=== PATIENT | female | born 1945 | race Caucasian/White ===

== ENCOUNTER → 2020-01-13 07:50 | Outpatient (CLI) | payer MEDICARE, SELFPAY ==
--- NOTE | 2020-01-13 08:00 | CT_ITS ---
STUDY: CT CHEST WITH CONTRAST REASON FOR EXAM: Female, 74 years old. Metastatic breast cancer staging. RADIATION DOSAGE (If Supplied By Facility): CTDIvol = ( 10.79 ) mGy, DLP = ( 849.00 ) mGycm TECHNIQUE: Transaxial imaging was performed following intravenous administration of Oral and amp; IV Readi-CAT and amp; 100ML OPTIRAY 32. Multiplanar coronal and sagittal images were reformatted. Individualized dose optimization techniques were used for this CT. COMPARISON: None. FINDINGS: A left-sided portacatheter is seen. The tip is in the superior vena cava. Bilateral breast prostheses. Surgical clips are seen in the left axillary region. Small benign-appearing bilateral axillary lymph nodes. There are multiple pleural based masses in the left hemithorax. A dominant 2.2 cm mass is seen in the anterior lateral aspect of the left upper lobe. This is pleural-based. Several other nodular masses are seen along the posterior aspect of the left lower lobe as well as in the lateral anterior aspect of the right middle lobe which is pleural-based. This measures 3.5 cm x 1.5 cm. There is also evidence of small nodular densities seen along the pleural surface along the medial aspect of the right upper lobe extending into the mediastinum at the level of the aortic arch. Normal heart and pericardium. Normal mediastinum. Normal hilar regions. Normal enhanced pulmonary arteries. Normal aorta arch and descending thoracic aorta. There is evidence of bony destruction of the midportion of the body of the sternum with expansion. Small scattered sclerotic foci are seen in the mid dorsal vertebrae. There is a 5.9 cm x 5.3 cm low density mass in the spleen with a calcific rim surrounding it. This may represent changes secondary to old trauma. CT/Chest WITH Contrast IMPRESSION: Multiple pleural-based masses seen in the left hemithorax as described. Bony destruction of the body of the sternum. Electronically Signed: Angel Morse, at 11:09 EDT , Service support ,
--- NOTE | 2020-01-13 08:00 | CT_ITS ---
STUDY: CT ABDOMEN AND PELVIS WITH CONTRAST REASON FOR EXAM: Female, 74 years old. Metastatic breast cancer staging. RADIATION DOSAGE (If Supplied By Facility): CTDIvol = ( 10.79 ) mGy, DLP = ( 849.00 ) mGycm TECHNIQUE: Transaxial images were obtained from the dome of the diaphragm to the symphysis pubis with oral contrast. Oral and amp; IV Readi-CAT and amp; 100ML OPTIRAY 32 was administered. Sagittal and coronal images were reconstructed. Individualized dose optimization techniques were used for this CT. COMPARISON: None. FINDINGS: Bilateral breast implants. There is a 4.9 cm x 1.9 cm pleural based mass in the left lower lobe. Further abnormalities were described on the prior CT scan of the thorax. The visualized portions of the heart are within normal limits. 4.5 mm cyst in the medial aspect of the right lobe of the liver along its dome. A similar appearing hypodensity is seen in the inferior aspect of the right lobe of the liver. This measures 7.8 m x 10 mm. Normal gallbladder and extrahepatic biliary system. There is a 5.5 cm x 5.9 cm cystic lesion in the body and midportion of the spleen with a thick calcific rim. This most likely recurrence changes secondary to old trauma. Normal pancreas. Normal bilateral adrenal glands. Normal right kidney. Normal left kidney. Normal visualized stomach. Normal small intestine. Normal colon. The appendix is visualized and appears normal. Normal abdominal aorta. Normal inferior vena cava. Normal retroperitoneum. Normal urinary bladder. Normal abdominal wall. Disc space narrowing and degeneration with spondylosis and subchondral sclerosis at the L5-S1 level. Mild levoscoliosis. The patient is status post bilateral total hip replacement causing streak artifacts in the pelvis and limiting the evaluation of the pelvic structures. CT/Abdomen/Pelvis WITH Contrast IMPRESSION: Tiny cysts in the liver. Hypodense mass with a thick calcific rim in the spleen suggestive of old trauma. Pleural-based mass in the left lower lobe. Electronically Signed: Angel Morse at 11:13 EDT , Service support ,
--- NOTE | 2020-01-13 09:48 | ECHOD_ITS ---
Reason For Study: PALPITATIONS, Procedure This was a 2D Doppler, Color Flow transthoracic echocardiogram. Exam performed in department. Left Ventricle Normal LV size. The estimated ejection fraction is 60-65 %. Normal diastology for age. No regional wall motion abnormalities noted. Right Ventricle Normal RV size. Normal systolic function. Atria Normal left atrium. The right atrium is mildly enlarged. No doppler evidence for ASD. Mitral Valve There is no mitral valve stenosis. No mitral valve insufficiency. Tricuspid Valve There is no tricuspid stenosis. Trivial tricuspid valve insufficiency. Pulmonary artery systolic pressure is 25 mmHg. Aortic Valve Trisinus/trileaflet aortic valve. There is no aortic stenosis. No aortic valve insufficiency. Pulmonic Valve There is no pulmonic valvular stenosis. No pulmonic valve insufficiency. Great Vessels Normal aortic root. Pericardium/Pleural No pericardial effusion. MMode/2D Measurements & Calculations LVIDd: 4.3 cm IVSd: 0.78 cm Ao root diam: 3.1 cm LVIDs: 2.8 cm LVPWd: 0.77 cm RVDd: 3.3 cm FS: 35.1 % LAV(MOD-bp): 35.6 ml LA A4 area: 14.2 cm2 LA dimension(2D): 2.4 cm LAV(MOD-sp2): 39.8 ml LAV(MOD-sp4): 30.2 ml RA A4 area: 20.6 cm2 Time Measurements MV dec time: 0.19 sec Doppler Measurements & Calculations MV E max eulogio: 69.9 cm/sec Lat Peak E' Eulogio: 8.8 cm/sec Med Peak E' Eulogio: 6.8 cm/sec MV A max eulogio: 82.9 cm/sec E/E' lat: 7.9 E/E' med: 10.2 MV E/A: 0.84 Ao V2 max: 129.3 cm/sec LV V1 max: 104.1 cm/sec PA V2 max: 101.8 cm/sec Ao max P.7 mmHg LV V1 max P.3 mmHg Ao V2 mean: 90.5 cm/sec Ao mean P.6 mmHg Ao V2 VTI: 25.9 cm TR max eulogio: 217.9 cm/sec TR max P.0 mmHg Interpretation Summary The estimated ejection fraction is 60-65 %. Normal diastology for age. Trivial tricuspid valve insufficiency. Ordering Physician: TENZIN MENDIETA Performed By: Olga Calix RDCS, RVT
== END ==
DX: C79.51 Secondary malignant neoplasm of bone (principal); C80.1 Malignant (primary) neoplasm, unspecified; Z13.6 Encounter for screening for cardiovascular disorders; R00.2 Palpitations
CPT/HCPCS: 71260; 74177; 93306; Q9967; A4216

== ENCOUNTER → 2020-03-30 14:13 | Outpatient (CLI) | payer MEDICARE, SELFPAY ==
--- NOTE | 2020-03-30 14:23 | CT_ITS ---
STUDY: CT ABDOMEN AND PELVIS WITH CONTRAST REASON FOR EXAM: Female, 74 years old. LEFT BREAST CA FOLLOW UP RADIATION DOSAGE (If Supplied By Facility): CTDIvol = ( 9.14 ) mGy, DLP = ( 675.35 ) mGycm TECHNIQUE: Transaxial images were obtained from the dome of the diaphragm to the symphysis pubis with Gastrografin oral contrast. 100 mL of Isovue 300 was administered intravenously. Sagittal and coronal images were reconstructed. Individualized dose optimization techniques were used for this CT. COMPARISON: 11/10/2019. FINDINGS: Left pleural based metastatic masses were present previously. The visualized portions of the heart are within normal limits. Small nonenhancing hypodense cyst in the right lower hepatic lobe is unchanged. Normal gallbladder and extrahepatic biliary system. 5.7 cm cyst in the spleen with thick calcified wall. Normal pancreas. Normal bilateral adrenal glands. Normal right kidney. Normal left kidney. Normal visualized stomach. Mild dilatation of the contrast filled small intestine in the pelvis and the right side of the abdomen. Ingested radiopaque calcific material in the right cecum (series 3, image 43). The appendix is not visualized. Normal abdominal aorta. Normal inferior vena cava. Normal retroperitoneum. Normal urinary bladder. Pelvic organs are partially obscured by metallic hip prosthesis on both sides. Normal abdominal wall. Mild levoscoliosis of the lumbar spine. Pronounced L5-S1 disc space height narrowing with endplate sclerosis. Mild degenerative anterolisthesis of L3 on L4 with mild disc space height narrowing. No acute osseous abnormality. CT/Abdomen/Pelvis WITH Contrast IMPRESSION: 1. Left pleural based a metastatic mass lesions were present previously. 2. Small nonenhancing hypodense cyst in the right lower hepatic lobe is unchanged. 3. 5.7 cm splenic cyst with thick calcified ramachandran is unchanged. 4. No suspicious bowel obstruction or acute abnormality in the abdomen and pelvis. 5. No significant interval change when compared to 11/10/2019. Electronically Signed: Pato Moran MD at 15:31 EDT , Service support ,
--- NOTE | 2020-03-30 14:23 | CT_ITS ---
STUDY: CT CHEST WITH CONTRAST REASON FOR EXAM: Female, 74 years old. POLYPS, HX BREAST CA, CURRENT TX RADIATION DOSAGE (If Supplied By Facility): CTDIvol = ( 9.14 ) mGy, DLP = ( 675.35 ) mGycm TECHNIQUE: Transaxial imaging was performed following intravenous administration of Oral and amp; IV Gastrografin and amp; 100mL Isovue-300. Individualized dose optimization techniques were used for this CT. COMPARISON: January 13, 2020 FINDINGS: Bilateral breast prostheses. Multiple reidentified pleural-based masses are similar or slightly increased compared to prior for example the largest lesion at the left base currently measures 2.2 x 4.2 cm previously 1.8 x 4.5 centimeters. Several left fissural nodules most likely represent lymph nodes and are stable in appearance. Normal heart and pericardium. Normal mediastinum. Normal hilar regions. Normal enhanced pulmonary arteries. Normal aorta arch and descending thoracic aorta. No acute or aggressive osseous process is identified. Stable irregular sclerotic lesion of the midsternum. Stable peripherally calcified mass in the spleen. CT/Chest WITH Contrast IMPRESSION: Multiple large lobulated left pleural lesions are stable. One of the lesions may be slightly increased in size compared to prior but these changes are most likely attributable to differences in technique. Other findings are unchanged. Electronically Signed: Dawood Holt, at 19:36 EDT Tel , Service support ,
[2020-03-30] MEDS: 0.9% Saline Lock 10 ML Syringe IV (14:45)
[2020-04-01 11:08] LABS: CREATININE FINGERSTICK 0.53 mg/dL (0.55-1.02); EGFR FINGERSTICK > 60 mL/min (>60)
== END ==
DX: C50.919 Malignant neoplasm of unspecified site of unspecified female breast (principal)
CPT/HCPCS: 71260; 74177; Q9967; A4216

== ENCOUNTER → 2020-04-03 10:36 | Outpatient (CLI) | payer MEDICARE, SELFPAY ==
--- NOTE | 2020-04-03 10:43 | NM_ITS ---
CLINICAL: 74-year-old female with reported history of carcinoma of the breast. WHOLE BODY 99m Tc MDP RADIONUCLIDE BONE SCINTIGRAPHY COMPARISON: CT of the chest, abdomen and pelvis reports 03/30/2020 FINDINGS: Following the intravenous administration of approximately 25 mCi of 99m Tc MDP, whole body bone images reveal: 1. Increased radiopharmaceutical concentration is identified in the mid sternum, left anterior second, left posterior lateral 11th ribs, the left proximal clavicle. 2. Enhanced tracer concentration is observed in the bilateral knees, left and right wrists, midfoot bilaterally, third lumbar vertebra posteriorly on the left and right, left posterior sacrum. 3. The remaining skeletal structures are scintigraphically unremarkable with normal-appearing renal images and urinary bladder activity identified. Facilitated tracer concentration is defined in the acetabular and distal femoral components of the presumed asymptomatic right hip arthroplasty most consistent with normal postsurgical change. No significant increase in tracer distribution is defined in the visualized left hip prosthesis. Facilitated uptake is noted in the bilateral maxilla, lacrimal and zygomatic bones likely represent a component of periostitis. NM/Bone Scan Whole Body IMPRESSION: 1. The increase in radiopharmaceutical concentration identified in the bilateral ribs and mid sternum may represent limited skeletal metastatic disease. Plain film radiography correlation is recommended. 2. Degenerative arthritis appears expressed in the bilateral knees, both wrist articulations, right-left midfoot, third lumbar vertebra and sacrum. Plain film x-ray correlation may also be of benefit in the lumbar spine. Electronically Signed: Valentin Avila DO at 23:01 EDT Tel , Service support ,
[2020-04-03] MEDS: 0.9% Saline Lock 10 ML Syringe IV (11:05)
== END ==
DX: C50.919 Malignant neoplasm of unspecified site of unspecified female breast (principal)
CPT/HCPCS: 78306; A4216

== ENCOUNTER → 2020-07-10 13:27 | Outpatient (CLI) | payer MEDICARE, SELFPAY ==
--- NOTE | 2020-07-10 13:36 | CT_ITS ---
HISTORY: BREAST CA WITH RADICAL MASTECTOMY AND CHEMO, HAS IMPLANTS, BILAT THR, CHEMO CHECK ADDITIONAL HISTORY: None provided. EXAMINATION/TECHNIQUE: CT Abdomen And Pelvis W/ Contrast Injection CONTRAST: 100 mL Isovue-300 IV contrast. Enteric contrast was given. A radiation dose optimization technique was used for this scan. Number of images including paperwork: [id number] COMPARISON: 03/30/2020, 11/10/2019 FINDINGS: LOWER THORAX: Refer to CT chest report. LIVER: Unchanged right lobe hepatic cyst. GALLBLADDER: No radiopaque calculi. BILE DUCTS: No significant biliary dilatation. SPLEEN: Peripherally calcified splenic lesion appears similar. PANCREAS: 7 mm cyst in the pancreatic tail is unchanged. ADRENAL GLANDS: Unremarkable. KIDNEYS/URETERS: Unremarkable. BOWEL: No bowel obstruction. No significant bowel wall thickening. No localized inflammation. Moderate amount of colonic stool. APPENDIX: No evidence of appendicitis. FREE FLUID: No significant free fluid. FREE AIR: None. LYMPH NODES: No pathologic appearing adenopathy. PERITONEUM, RETROPERITONEUM AND MESENTERY: Otherwise unremarkable. VASCULATURE: Unremarkable as imaged. PELVIS: Limited evaluation due to artifact from bilateral hip prostheses. Bladder appears grossly unremarkable as visualized. ABDOMINAL WALL: Unremarkable. OSSEOUS AND SOFT TISSUE STRUCTURES: No acute skeletal findings. Bilateral hip prostheses. Degenerative changes. CT/Abdomen/Pelvis WITH Contrast IMPRESSION: Stable appearance of the abdomen and pelvis without evidence of metastatic disease. Individualized dose optimization techniques were used for this CT. at 0816 Reported and signed by: Maria Fernanda Topete MD Electronically Signed: Maria Fernanda Topete MD at 8:15 EDT Tel , Service support ,
--- NOTE | 2020-07-10 13:36 | CT_ITS ---
HISTORY: BREAST CA WITH BILAT RADICAL MASTECTOMY AND CHEMO, HAS IMPLANTS, BILAT THR, CHEMO CHECK TECHNIQUE: CT images of the chest were obtained with 100 mL Isovue-300 IV contrast. Number of images including paperwork: [id number]. A radiation dose optimization technique was used for this scan. COMPARISON: 03/30/2020 FINDINGS: VASCULATURE: Vascular tortuosity. HEART/PERICARDIUM: Normal heart size. Coronary calcification. MEDIASTINUM: Unremarkable. ADENOPATHY: No pathologic appearing adenopathy. THYROID: Unremarkable visualized portions. LUNG PARENCHYMA: No consolidation or mass. Mild atelectatic changes. PLEURAL SPACES: Multiple pleural masses on the left again seen. Mass in the left upper anterior chest measures 1.9 x 2.4 cm on series 2 image 30, previously 1.8 x 2.5 cm. Mass in the posterior left upper chest measures 1.1 x 3.0 cm on series 2 image 45, previously 1.2 x 3.0 cm. Mass in the posterior left lower chest measures 2.2 x 4.3 cm on series 2 image 80, previously 2.1 x 4.2 cm. UPPER ABDOMEN: Refer to CT abdomen report. OSSEOUS AND SOFT TISSUE STRUCTURES: No acute skeletal findings. Lytic lesion with surrounding sclerosis in the sternum with small associated soft tissue mass appears similar. DEVICES: Bilateral breast prostheses. Left chest port with catheter tip in the distal superior vena cava. CT/Chest WITH Contrast IMPRESSION: No gross change in pleural-based masses in the left chest. Sternal lesion appears similar. Individualized dose optimization techniques were used for this CT. at 0811 Reported and signed by: Maria Fernanda Topete MD Electronically Signed: Maria Fernanda Topete MD at 8:11 EDT Tel , Service support ,
[2020-07-15 13:21] LABS: CREATININE FINGERSTICK 0.64 mg/dL (0.55-1.02)
== END ==
DX: C50.919 Malignant neoplasm of unspecified site of unspecified female breast (principal)
CPT/HCPCS: 71260; 74177; Q9967

== ENCOUNTER → 2020-08-25 13:58 | Outpatient (CLI) | payer MEDICARE, SELFPAY ==
--- NOTE | 2020-08-25 14:12 | ECHOD_ITS ---
Reason For Study: CHEMOTHERAPY- HIGH RISK MEDS Procedure This was a 2D Doppler, Color Flow transthoracic echocardiogram. Myocardial strain analysis was performed in this exam to aid in the assessment of cardiac function. Technically difficult to assess strain. The study was technically difficult. Exam performed in department. Left Ventricle Normal LV size. Left ventricular systolic function is normal. The estimated ejection fraction is 55 %. No regional wall motion abnormalities noted. Right Ventricle Normal RV size. Normal systolic function. Atria Normal left atrium. Normal right atrium. Probable chiari network. Mitral Valve Posterior leaflet diffuse mitral valve thickening. Mild (1+) eccentric mitral valve insufficiency. Tricuspid Valve Normal tricuspid valve. Mild tricuspid valve insufficiency. Pulmonary artery systolic pressure is 28 mmHg. Aortic Valve Normal aortic valve. Pulmonic Valve Normal pulmonic valve. Great Vessels Normal aortic root. The pulmonary artery is normal size. Normal inferior vena cava. Pericardium/Pleural No pericardial effusion. MMode/2D Measurements & Calculations LVIDd: 4.2 cm IVSd: 0.87 cm Ao root diam: 3.6 cm LVIDs: 2.8 cm LVPWd: 0.87 cm RVDd: 2.9 cm FS: 34.5 % LAV(MOD-bp): 55.2 ml LVAd ap4: 27.9 cm2 SV(MOD-sp4): 51.2 ml LAV(MOD-bp) Indexed: 33.5 ml/m2 EDV(MOD-sp4): 79.2 ml LAV(MOD-sp2): 52.9 ml EDV(sp4-el): 79.2 ml LAV(MOD-sp4): 54.7 ml LVAs ap4: 14.0 cm2 ESV(MOD-sp4): 28.0 ml ESV(sp4-el): 26.6 ml EF(MOD-sp4): 64.6 % EF(sp4-el): 66.4 % SV(sp4-el): 52.6 ml LA A4 area: 19.5 cm2 LA dimension(2D): 3.1 cm RA A4 area: 17.0 cm2 Time Measurements MV dec time: 0.23 sec Doppler Measurements & Calculations MV E max eulogio: 93.7 cm/sec Lat Peak E' Eulogio: 12.9 cm/sec Med Peak E' Eulogio: 7.6 cm/sec MV A max eulogio: 70.7 cm/sec E/E' lat: 7.3 E/E' med: 12.4 MV E/A: 1.3 Ao V2 max: 136.4 cm/sec LV V1 max: 131.8 cm/sec PA V2 max: 109.2 cm/sec Ao max P.4 mmHg LV V1 max P.0 mmHg TR max eulogio: 249.6 cm/sec TR max P.9 mmHg Interpretation Summary Normal LV size. Left ventricular systolic function is normal. The estimated ejection fraction is 55 %. Probable chiari network. Posterior leaflet diffuse mitral valve thickening. Mild (1+) eccentric mitral valve insufficiency. The global longitudinal strain is normal. The global longitudinal strain = -18.3 % (normal). Ordering Physician: NERY DOMÍNGUEZ Referring Physician: NERY DOMÍNGUEZ Performed By: Cassandra Staples, RDCS, RVT
== END ==
DX: Z13.6 Encounter for screening for cardiovascular disorders (principal)
CPT/HCPCS: 93306

== ENCOUNTER → 2020-10-02 07:07 | Outpatient (CLI) | payer MEDICARE, SELFPAY ==
--- NOTE | 2020-10-02 07:16 | CT_ITS ---
STUDY: CT CHEST WITH CONTRAST REASON FOR EXAM: Female, 74 years old. METASTATIC BREAST CANCER FOLLOW UP, LAST CHEMO X 4 DAYS AGO RADIATION DOSAGE (If Supplied By Facility): CTDIvol = ( 19.94 ) mGy, DLP = ( 624.94 ) mGycm TECHNIQUE: Transaxial imaging was performed following intravenous administration of Oral and IV Readi-CAT and 100mL Isovue-300. Multiplanar coronal and sagittal images were reformatted. Individualized dose optimization techniques were used for this CT. COMPARISON: Comparison is made with prior examination dated 07/10/2020. FINDINGS: 2 mm hypodense nodule seen in the inferior pole of the left lobe of the thyroid. A left-sided portacatheter is seen with the tip in the superior vena cava. Stable appearance of the bilateral breast implants. Surgical clips are seen in the left axillary region. Multiple pleural based soft tissue masses are seen in the left hemithorax. The mass in the left upper anterior chest presently measures 1.8 cm x 2.1 cm. This has decreased slightly in size. The mass in the posterior left upper chest is unchanged. The masses in the posterior left lower chest at been stable as well. There is no demonstrated pleural abnormality. Normal heart and pericardium. Normal mediastinum. Normal hilar regions. Normal enhanced pulmonary arteries. Normal aorta arch and descending thoracic aorta. Stable appearance of the lytic lesion seen in the body of the sternum. There is no demonstrated abnormality of the visualized upper abdomen. CT/Chest WITH Contrast IMPRESSION: Slight decrease in size of the mass in the anterior aspect of the left upper chest. The remainder of the examination is unchanged. Electronically Signed: Angel Morse, at 10:24 EST , Service support ,
--- NOTE | 2020-10-02 07:16 | CT_ITS ---
STUDY: CT ABDOMEN AND PELVIS WITH CONTRAST REASON FOR EXAM: Female, 74 years old. METASTATIC BREAST CANCER FOLLOW UP, LAST CHEMO X 4 DAYS AGO RADIATION DOSAGE (If Supplied By Facility): CTDIvol = ( 19.94 ) mGy, DLP = ( 624.94 ) mGycm TECHNIQUE: Transaxial images were obtained from the dome of the diaphragm to the symphysis pubis with oral contrast. Oral and amp;amp; IV Readi-CAT and amp;amp; 100mL Isovue-300 was administered. Sagittal and coronal images were reconstructed. Individualized dose optimization techniques were used for this CT. COMPARISON: Comparison is made with prior study dated 07/10/2020. FINDINGS: Stable pleural-based mass in the left lower lobe. The visualized portions of the heart are within normal limits. Fatty infiltration of the liver. Stable tiny cystic nodules in the right lobe. Normal gallbladder and extrahepatic biliary system. Stable 5.8 cm x 5.2 cm cystic mass in the mid and inferior aspect of the spleen with a thick calcific rim. Stable 7 mm cyst in the pancreatic tail. Normal bilateral adrenal glands. Normal right kidney. Normal left kidney. Normal visualized stomach. Normal small intestine. Normal colon. The appendix is visualized and appears normal. Normal abdominal aorta. Normal inferior vena cava. Normal retroperitoneum. Normal urinary bladder. Normal abdominal wall. Disc space narrowing with subchondral sclerosis and disc degeneration at the L5-S1 level. Status post bilateral total hip replacement. CT/Abdomen/Pelvis WITH Contrast IMPRESSION: Stable examination. Electronically Signed: Angel Morse, at 10:26 EST , Service support ,
[2020-10-02 07:39] LABS: Creatinine, Serum 0.81 mg/dL (0.55-1.02); EST Glomerular Filtration Rate 74 mL/min (>60); Est Glom Filt Rate - Afr Amer 89 mL/min (>60)
[2020-10-02] MEDS: 0.9% Saline Lock 10 ML Syringe IV (08:20)
== END ==
DX: C50.919 Malignant neoplasm of unspecified site of unspecified female breast (principal); C79.9 Secondary malignant neoplasm of unspecified site
CPT/HCPCS: 36415; 71260; 74177; 82565; Q9967; A4216

== ENCOUNTER → 2020-10-04 08:17 | Outpatient (CLI) | payer MEDICARE, SELFPAY ==
--- NOTE | 2020-10-04 08:22 | NM_ITS ---
CLINICAL: 74-year-old female with reported history of carcinoma of the breast metastatic to bone. WHOLE BODY 99m Tc MDP RADIONUCLIDE BONE SCINTIGRAPHY COMPARISON: Previous whole body bone scintigraphy study dated 04/03/2020, CT of the chest, abdomen and pelvis reports 10/02/2020 FINDINGS: Following the intravenous administration of 24.8 mCi of 99m Tc MDP, whole body bone images reveal: 1. Increased radiopharmaceutical concentration is currently identified in the right iliac wing, acetabular component of the right hip prosthesis, mid-distal sternum, left anterior fourth rib, left posterior lateral 11th rib. 2. Facilitated uptake is observed in the acromioclavicular compartment of the right shoulder, bilateral wrists, both hands, left knee, right-left ankle articulation, mid-lower cervical spine, third and fifth lumbar vertebra. 3. The remaining skeletal structures are scintigraphically unremarkable with normal-appearing renal images and urinary bladder activity identified. An increase in radiotracer distribution is persistently visualized in the bilateral maxilla and interorbital aspect of the calvarium most consistent with periostitis and/or periodontal disease. Prominent uptake is presently evident in the femoral and trochanteric aspects of the of the presumed asymptomatic right hip arthroplasty most consistent with normal postsurgical change. NM/Bone Scan Whole Body IMPRESSION: 1. The increase in radiopharmaceutical concentration demonstrated in the right iliac wing, acetabular component of the right hip arthroplasty, the sternum, left anterior fourth and left posterior 11th ribs is most consistent with osteoblastic turnover attributed to skeletal metastatic disease. 2. Degenerative arthritis appears expressed in the right shoulder, both wrists, hands bilaterally, the left knee, ankles bilaterally, the cervical and lumbar spine. 3. Overall compared to the previous whole body bone scintigraphy study dated 04/03/2020, there is apparent current expression of multifocal osseous metastasis. Electronically Signed: Valentin Avila DO at 23:07 EST Tel , Service support ,
== END ==
DX: C50.919 Malignant neoplasm of unspecified site of unspecified female breast (principal)
CPT/HCPCS: 78306